=== PATIENT | male | born 1970 | race African-American/Black ===

== ENCOUNTER 2022-04-22 19:28 | Inpatient (IN) | payer SELFPAY ==
[2022-04-22] MEDS ORDERED: Ondansetron PF 4 MG/2 ML Vial ONE (19:58)
[2022-04-22 20:02] LABS: #Lymphocytes 1.8 thou/uL (1.20-3.40); #Monocytes 0.5 thou/uL (0.11-0.59); #Neutrophils 8.8 thou/uL (1.40-6.50); %Eosinophils 0.2 % (0.0-10.0); %Lymphocytes 16.1 % (21.0-51.0); %Monocytes 4.7 % (0.0-10.0); Hemoglobin 13.7 g/dL (14.0-18.0); Mean Corpuscular HGB CONC 32.6 g/dL (32.0-36.0); Mean Corpuscular Hemoglobin 24.9 pg (27.0-31.0); Mean Corpuscular Volume 76.6 fl (78.0-98.0); Mean Platelet Volume 8.9 fL (7.4-10.4); Platelet Count 200 10x3/uL (130-400); RBC Distribution Width 13.3 % (11.5-14.5); Red Blood Cell (RBC) Count 5.48 mill/uL (4.70-6.10); White Blood Cell (WBC) Count 11.2 10x3/uL (4.8-10.8)
[2022-04-22 20:31] LABS: ALT (SGPT) 13 U/L (8-55); AST (SGOT) 16 U/L (5-34); Albumin 4.3 g/dL (3.5-5.0); Alkaline Phosphatase 75 U/L (40-110); Anion Gap 17 mmol/L (10-20); BUN (Urea Nitrogen) 14 mg/dL (8.9-20.6); Bilirubin, Total 0.8 mg/dL (0.2-1.2); Calc. Creatinine Clearance 0 mL/min (70-130); Calcium 9.1 mg/dL (7.8-10.44); Carbon Dioxide 25 mmol/L (22-29); Chloride 103 mmol/L (98-107); Estimated GFR 69; Glucose 168 mg/dL (70-105); Lipase 39 U/L (8-78); Potassium 3.5 mmol/L (3.5-5.1); Sodium 141 mmol/L (136-145)
[2022-04-22] MEDS ORDERED: diphenhydrAMINE 50 MG/ML VIAL ONE (21:06)
[2022-04-22] MEDS ORDERED: Aspirin Chewable 81 MG TAB ONE (21:06)
[2022-04-22] MEDS ORDERED: Nitroglycerin 2% Ointment 1 INCH/1 GM Packet ONE (21:06)
[2022-04-22] MEDS ORDERED: Metoclopramide HCl 10 MG/2 ML VIAL ONE (21:06)
[2022-04-22 21:22] LABS: Globulin 3.3 g/dL (2.4-3.5); Protein, Total 7.6 g/dL (6.0-8.3)
[2022-04-22] MEDS ORDERED: hydrALAZINE 20 MG/ML VIAL ONE (21:57)
[2022-04-22 23:19] LABS: Troponin I Less than 0.010 ng/mL (< 0.028)
[2022-04-22] MEDS ORDERED: Sodium Chloride 0.9% 1,000 ML IV SCH (23:45)
[2022-04-23 00:11] VITALS: BMI 30.2
[2022-04-23] MEDS ORDERED: diphenhydrAMINE 50 MG/ML VIAL IVP PRN (00:23)
[2022-04-23] MEDS: Lactated Ringer's 1,000 ML IV SCH ×2 (01:05→08:57)
[2022-04-23] MEDS ORDERED: Dextrose 50% Abboject 50 ML SYRINGE SLOW IVP PRN (01:26)
[2022-04-23] MEDS ORDERED: Dextrose 5% in Water 1,000 ML IV PRN (01:26)
[2022-04-23] MEDS ORDERED: HumaLOG 300 UNITS/3 ML VIAL SC PRN (01:26)
[2022-04-23 01:49] LABS: Bacteria/HPF None Seen HPF (None Seen); Bilirubin Negative (Negative); Blood, Urine Trace (Negative); CAUTI Indications for Culture Alt mental st,lethar; Clarity Clear (Clear); Glucose, Urine (Dipstick) 300 mg/dL (Negative); Ketone, Urine 40 mg/dL (Negative); Leukocyte Negative Leu/uL (Negative); Nitrite Negative (Negative); Protein, Urine (Dipstick) Negative (Neg-Trace); Specific Gravity, Urine 1.014 (1.002-1.036); Squamous Epithelial None Seen HPF (0-3); Urobilinogen Normal mg/dL (Less than 2); WBC/HPF 0-3 HPF (0-3)
[2022-04-23 01:50] LABS: Urine Culture Reflex No No
[2022-04-23 02:41] LABS: #Lymphocytes 1.3 thou/uL (1.20-3.40); #Monocytes 0.5 thou/uL (0.11-0.59); #Neutrophils 8.4 thou/uL (1.40-6.50); %Basophils 0.1 % (0.0-1.0); %Eosinophils 0.1 % (0.0-10.0); %Lymphocytes 12.4 % (21.0-51.0); %Monocytes 4.4 % (0.0-10.0); Hemoglobin 12.7 g/dL (14.0-18.0); Mean Corpuscular HGB CONC 32.2 g/dL (32.0-36.0); Mean Corpuscular Hemoglobin 24.6 pg (27.0-31.0); Mean Corpuscular Volume 76.5 fl (78.0-98.0); Mean Platelet Volume 8.8 fL (7.4-10.4); Platelet Count 182 10x3/uL (130-400); RBC Distribution Width 13.1 % (11.5-14.5); Red Blood Cell (RBC) Count 5.18 mill/uL (4.70-6.10); White Blood Cell (WBC) Count 10.1 10x3/uL (4.8-10.8)
[2022-04-23 02:47] LABS: Hemoglobin A1c 10.7 % (4.0-6.0)
[2022-04-23 02:59] LABS: Cardiac Risk 3.5 (Less than 4.5)
[2022-04-23 03:02] LABS: Troponin I Less than 0.010 ng/mL (< 0.028)
[2022-04-23 03:09] LABS: ALT (SGPT) 11 U/L (8-55); AST (SGOT) 15 U/L (5-34); Albumin 3.8 g/dL (3.5-5.0); Alkaline Phosphatase 69 U/L (40-110); Anion Gap 15 mmol/L (10-20); BUN (Urea Nitrogen) 14 mg/dL (8.9-20.6); Bilirubin, Total 0.7 mg/dL (0.2-1.2); Calc. Creatinine Clearance 122 mL/min (70-130); Calcium 8.4 mg/dL (7.8-10.44); Carbon Dioxide 22 mmol/L (22-29); Chloride 106 mmol/L (98-107); Estimated GFR 101; Globulin 2.8 g/dL (2.4-3.5); Glucose 137 mg/dL (70-105); Potassium 3.5 mmol/L (3.5-5.1); Protein, Total 6.6 g/dL (6.0-8.3); Sodium 139 mmol/L (136-145)
[2022-04-23] MEDS: Metoclopramide HCl 10 MG/2 ML VIAL IVP SCH ×2 (05:36→13:21)
[2022-04-23] MEDS: Amlodipine 10 MG TAB PO SCH (08:48)
[2022-04-23] MEDS: Enoxaparin Sodium 40 MG/0.4 ML SYRINGE SC SCH (08:49)
[2022-04-23] MEDS ORDERED: Pantoprazole 40 MG VIAL IVP SCH (09:00)
[2022-04-23] MEDS ORDERED: diphenhydrAMINE 25 MG CAP PO PRN (17:24)
[2022-04-23] MEDS ORDERED: hydrALAZINE 20 MG/ML VIAL SLOW IVP PRN (19:15)
[2022-04-23] MEDS: Metoclopramide HCl 10 MG TAB PO SCH (21:03)
[2022-04-23] MEDS ORDERED: Acetaminophen 325 MG TAB PO SCH (21:15)
[2022-04-24 05:16] LABS: #Basophils 0.1 thou/uL (0.0-0.2); #Eosinphils 0.1 thou/uL (0.0-0.7); #Lymphocytes 3.2 thou/uL (1.20-3.40); #Monocytes 0.9 thou/uL (0.11-0.59); #Neutrophils 5.2 thou/uL (1.40-6.50); %Basophils 0.8 % (0.0-1.0); %Eosinophils 1.5 % (0.0-10.0); %Lymphocytes 33.7 % (21.0-51.0); %Monocytes 9.1 % (0.0-10.0); Hemoglobin 12.9 g/dL (14.0-18.0); Mean Corpuscular HGB CONC 32.2 g/dL (32.0-36.0); Mean Corpuscular Hemoglobin 24.8 pg (27.0-31.0); Mean Platelet Volume 8.7 fL (7.4-10.4); Platelet Count 184 10x3/uL (130-400); RBC Distribution Width 13.1 % (11.5-14.5); Red Blood Cell (RBC) Count 5.22 mill/uL (4.70-6.10); White Blood Cell (WBC) Count 9.5 10x3/uL (4.8-10.8)
[2022-04-24] MEDS: Metoclopramide HCl 10 MG TAB PO SCH ×3 (05:16→21:36)
[2022-04-24 05:40] LABS: ALT (SGPT) 11 U/L (8-55); AST (SGOT) 13 U/L (5-34); Albumin 3.5 g/dL (3.5-5.0); Alkaline Phosphatase 64 U/L (40-110); Anion Gap 11 mmol/L (10-20); BUN (Urea Nitrogen) 11 mg/dL (8.9-20.6); Calc. Creatinine Clearance 117 mL/min (70-130); Calcium 8.4 mg/dL (7.8-10.44); Carbon Dioxide 27 mmol/L (22-29); Chloride 104 mmol/L (98-107); Estimated GFR 97; Globulin 2.8 g/dL (2.4-3.5); Glucose 109 mg/dL (70-105); Potassium 3.3 mmol/L (3.5-5.1); Protein, Total 6.3 g/dL (6.0-8.3); Sodium 139 mmol/L (136-145)
[2022-04-24] MEDS ORDERED: Potassium Chloride 20 MEQ TAB PO SCH (06:30)
[2022-04-24] MEDS ORDERED: Senokot S 8.6-50 MG TAB PO PRN (06:34)
[2022-04-24] MEDS: Amlodipine 10 MG TAB PO SCH (08:33)
[2022-04-24] MEDS: metFORMIN 500 MG TAB PO SCH ×2 (08:33→17:17)
[2022-04-24] MEDS: Enoxaparin Sodium 40 MG/0.4 ML SYRINGE SC SCH (08:34)
[2022-04-24] MEDS ORDERED: Losartan 25 MG TAB PO SCH ×2 (09:00→15:00)
[2022-04-24] MEDS: Polyethylene Glycol 3350 17 GM Packet PO SCH (14:19)
[2022-04-24] MEDS ORDERED: hydrALAZINE 20 MG/ML VIAL SLOW IVP PRN (14:37)
[2022-04-24] MEDS ORDERED: hydrALAZINE 25 MG TAB PO SCH (17:00)
[2022-04-24] MEDS ORDERED: Hydrochlorothiazide 25 MG TAB PO SCH (18:15)
[2022-04-25] MEDS: Metoclopramide HCl 10 MG TAB PO SCH (06:33)
[2022-04-25 08:18] VITALS: BP 140/94; TEMP 98.2
[2022-04-25] MEDS ORDERED: Hydrochlorothiazide 25 MG TAB PO SCH (09:00)
[2022-04-25] MEDS ORDERED: Losartan 25 MG TAB PO SCH (09:00)
[2022-04-25] MEDS: Amlodipine 10 MG TAB PO SCH (09:09)
[2022-04-25] MEDS: Enoxaparin Sodium 40 MG/0.4 ML SYRINGE SC SCH ×2 (09:09→09:12)
[2022-04-25] MEDS: metFORMIN 500 MG TAB PO SCH (09:09)
[2022-04-25] MEDS: Polyethylene Glycol 3350 17 GM Packet PO SCH (09:10)
[2022-04-26] MEDS ORDERED: FLU VACC QS2022-23(6MOS UP)/PF 60 MCG/0.5 ML SYRINGE IM ONE (09:00)
== END 2022-04-25 13:44 | disposition home or self-care (01) | DRG 74 ==
LOC: ERS 19:28 → 2SW 22:06 → OBSVTOIN 04-23 17:27
PROVIDERS: ADMIT Student in an Organized Health Care Education/Training Program; ATTEND Student in an Organized Health Care Education/Training Program
DX: E11.43 Type 2 diabetes mellitus with diabetic autonomic (poly)neuropathy (principal); K31.84 Gastroparesis; Z20.822 Contact with and (suspected) exposure to COVID-19; E03.9 Hypothyroidism, unspecified; G47.33 Obstructive sleep apnea (adult) (pediatric); E86.0 Dehydration; E11.65 Type 2 diabetes mellitus with hyperglycemia; I10 Essential (primary) hypertension; Z99.89 Dependence on other enabling machines and devices
CPT/HCPCS: 36415; 36416; 71045; 80053; 80061; 81001; 83036; 83690; 84439; 84443; 84484; 85025; 93005; 96365; 96375; 96376; C9113; G0378; J0360; J1200; J1650; J1815; J2405; J2765; J7120; U0003; U0005

== ENCOUNTER 2022-04-29 00:12 | Emergency (ER) | payer SELFPAY ==
[2022-04-29] MEDS ORDERED: Ondansetron PF 4 MG/2 ML Vial ONE (00:45)
[2022-04-29 00:52] LABS: #Lymphocytes 1.9 thou/uL (1.20-3.40); #Monocytes 0.8 thou/uL (0.11-0.59); #Neutrophils 13.1 thou/uL (1.40-6.50); %Basophils 0.3 % (0.0-1.0); %Eosinophils 0.2 % (0.0-10.0); %Monocytes 5.1 % (0.0-10.0); %Neutrophils 82.3 % (42.0-75.0); Hemoglobin 14.3 g/dL (14.0-18.0); Mean Corpuscular HGB CONC 32.4 g/dL (32.0-36.0); Mean Corpuscular Hemoglobin 24.5 pg (27.0-31.0); Mean Corpuscular Volume 75.6 fl (78.0-98.0); Mean Platelet Volume 8.6 fL (7.4-10.4); Platelet Count 231 10x3/uL (130-400); RBC Distribution Width 13.3 % (11.5-14.5); Red Blood Cell (RBC) Count 5.84 mill/uL (4.70-6.10)
[2022-04-29 01:06] LABS: ALT (SGPT) 9 U/L (8-55); AST (SGOT) 14 U/L (5-34); Albumin 4.4 g/dL (3.5-5.0); Alkaline Phosphatase 78 U/L (40-110); Anion Gap 18 mmol/L (10-20); BUN (Urea Nitrogen) 12 mg/dL (8.9-20.6); Bilirubin, Total 0.7 mg/dL (0.2-1.2); Calc. Creatinine Clearance 0 mL/min (70-130); Calcium 9.3 mg/dL (7.8-10.44); Carbon Dioxide 25 mmol/L (22-29); Chloride 97 mmol/L (98-107); Estimated GFR 70; Globulin 3.1 g/dL (2.4-3.5); Glucose 282 mg/dL (70-105); Lipase 40 U/L (8-78); Potassium 3.3 mmol/L (3.5-5.1); Protein, Total 7.5 g/dL (6.0-8.3); Sodium 137 mmol/L (136-145)
[2022-04-29] MEDS ORDERED: Dicyclomine 20 MG/2 ML VIAL ONE (01:40)
[2022-04-29 02:17] LABS: Bilirubin Negative (Negative); Blood, Urine 1+ (Negative); Clarity Clear (Clear); Glucose, Urine (Dipstick) Greater than 1000 mg/dL (Negative); Ketone, Urine 20 mg/dL (Negative); Leukocyte Negative Leu/uL (Negative); Nitrite Negative (Negative); Protein, Urine (Dipstick) 20 mg/dL (Neg-Trace); Specific Gravity, Urine 1.012 (1.002-1.036); Urobilinogen Normal mg/dL (Less than 2); pH, Urine 6.5 (5.0-9.0)
[2022-04-29 02:18] LABS: RBC/HPF 0-3 HPF (0-3); Squamous Epithelial None Seen HPF (0-3); WBC/HPF None Seen HPF (0-3)
[2022-04-29] MEDS ORDERED: Haloperidol Lactate 5 MG/ML VIAL ONE (03:22)
== END 2022-04-29 04:38 | disposition home or self-care (01) ==
LOC: ERS 00:12
DX: R10.9 Unspecified abdominal pain (principal); R11.10 Vomiting, unspecified; I10 Essential (primary) hypertension; E11.9 Type 2 diabetes mellitus without complications
CPT/HCPCS: 36415; 71045; 74176; 80053; 81003; 81015; 83690; 84484; 85025; 93005; 96372; 96374; 96375; J1630; J2405

== ENCOUNTER 2022-06-18 12:56 | Emergency (ER) | payer SELFPAY ==
[~2022-06-18 12:56] MED LIST: Iopamidol-370 76% 500 ML 1 ML ONE
[2022-06-18] MEDS ORDERED: Morphine 4 MG/ML VIAL ONE (13:40)
[2022-06-18] MEDS ORDERED: Ketorolac Tromethamine 30 MG/ML VIAL ONE (13:48)
[2022-06-18] MEDS ORDERED: Promethazine HCl 25 MG in Sodium Chloride 0.9% 50 ML IVPB SCH (14:00)
[2022-06-18 14:01] LABS: #Lymphocytes 1.1 thou/uL (1.20-3.40); #Monocytes 0.4 thou/uL (0.11-0.59); #Neutrophils 9.2 thou/uL (1.40-6.50); %Basophils 0.3 % (0.0-1.0); %Eosinophils 0.1 % (0.0-10.0); %Lymphocytes 10.2 % (21.0-51.0); %Monocytes 3.8 % (0.0-10.0); %Neutrophils 85.6 % (42.0-75.0); Hemoglobin 11.9 g/dL (14.0-18.0); Mean Corpuscular HGB CONC 32.6 g/dL (32.0-36.0); Mean Corpuscular Hemoglobin 24.2 pg (27.0-31.0); Mean Corpuscular Volume 74.2 fl (78.0-98.0); Mean Platelet Volume 8.1 fL (7.4-10.4); Platelet Count 241 10x3/uL (130-400); RBC Distribution Width 13.3 % (11.5-14.5); Red Blood Cell (RBC) Count 4.91 mill/uL (4.70-6.10); White Blood Cell (WBC) Count 10.7 10x3/uL (4.8-10.8)
[2022-06-18 14:12] LABS: ALT (SGPT) 10 U/L (8-55); AST (SGOT) 12 U/L (5-34); Alkaline Phosphatase 52 U/L (40-110); Anion Gap 15 mmol/L (10-20); BUN (Urea Nitrogen) 15 mg/dL (8.9-20.6); Bilirubin, Total 0.7 mg/dL (0.2-1.2); Calc. Creatinine Clearance 0 mL/min (70-130); Calcium 8.9 mg/dL (7.8-10.44); Carbon Dioxide 24 mmol/L (22-29); Chloride 101 mmol/L (98-107); Estimated GFR 70; Globulin 2.5 g/dL (2.4-3.5); Glucose 226 mg/dL (70-105); Potassium 3.4 mmol/L (3.5-5.1); Protein, Total 6.5 g/dL (6.0-8.3); Sodium 137 mmol/L (136-145)
[2022-06-18 14:13] LABS: Acetaminophen Less than 10.0 mcg/mL (10.0-30.0); Alcohol Less than 10 mg/dL (Less than 10); Lipase 50 U/L (8-78); Salicylate Less than 8.0 mg/dL (15.0-30.0)
[2022-06-18 14:15] LABS: Hypochromia SLIGHT = 6-15 cells (100X) (0-5/hpf); MDiff Complete? YES; Microcytosis SLIGHT = 6-15 cells (100X) (0-5/hpf); Ovalocytes SLIGHT = 2-5 cells (100X) (0-1/hpf); Platelet Morphology Comment Appears Adequate; Polychromasia SLIGHT = 2-3 cells (100X) (0-2/hpf)
[2022-06-18] MEDS ORDERED: Mag-Al 1200 mg/1200 mg/30 ML UDCUP ONE (15:09)
[2022-06-18] MEDS ORDERED: Lidocaine Viscous Sol 2% 15 ml UD Cup ONE (15:09)
[2022-06-18] MEDS ORDERED: Famotidine/PF 20 mg/2ml Vial ONE (15:10)
[2022-06-18 15:12] LABS: Bacteria/HPF None Seen HPF (None Seen); Bilirubin Negative (Negative); Blood, Urine 2+ (Negative); Clarity Clear (Clear); Glucose, Urine (Dipstick) 500 mg/dL (Negative); Ketone, Urine 10 mg/dL (Negative); Leukocyte Negative Leu/uL (Negative); Nitrite Negative (Negative); Protein, Urine (Dipstick) Negative (Neg-Trace); RBC/HPF 21-50 HPF (0-3); Specific Gravity, Urine 1.022 (1.002-1.036); Squamous Epithelial 0-3 HPF (0-3); Urobilinogen Normal mg/dL (Less than 2); WBC/HPF 0-3 HPF (0-3); pH, Urine 6.5 (5.0-9.0)
[2022-06-18 16:49] LABS: Lactic Acid 2.2 mmol/L (0.5-2.2)
== END 2022-06-18 18:27 | disposition home or self-care (01) ==
LOC: ERS 12:56
DX: N20.0 Calculus of kidney (principal); E11.9 Type 2 diabetes mellitus without complications; I10 Essential (primary) hypertension; Z20.822 Contact with and (suspected) exposure to COVID-19
CPT/HCPCS: 36415; 74177; 80053; 80307; 81003; 81015; 83605; 83690; 84484; 85025; 93005; 96361; 96374; 96375; J1790; J1885; J2270; J2550; Q9967; S0028; U0003; U0005

== ENCOUNTER 2022-08-19 09:49 | Emergency (ER) | payer BC, SELFPAY ==
[~2022-08-19 09:49] MED LIST changes: +Iopamidol 370 76% 100 ML VIAL ONE; -Iopamidol-370 76% 500 ML 1 ML ONE
[2022-08-19 10:23] LABS: #Lymphocytes 1.5 thou/uL (1.20-3.40); #Monocytes 0.7 thou/uL (0.11-0.59); #Neutrophils 9.7 thou/uL (1.40-6.50); %Basophils 0.3 % (0.0-1.0); %Eosinophils 0.2 % (0.0-10.0); %Lymphocytes 12.9 % (21.0-51.0); %Monocytes 6.1 % (0.0-10.0); %Neutrophils 80.7 % (42.0-75.0); Hemoglobin 13.3 g/dL (14.0-18.0); Mean Corpuscular HGB CONC 30.9 g/dL (32.0-36.0); Mean Corpuscular Hemoglobin 24.1 pg (27.0-31.0); Mean Corpuscular Volume 77.9 fl (78.0-98.0); Mean Platelet Volume 8.2 fL (7.4-10.4); Platelet Count 299 10x3/uL (130-400); RBC Distribution Width 13.8 % (11.5-14.5); Red Blood Cell (RBC) Count 5.52 mill/uL (4.70-6.10)
[2022-08-19] MEDS ORDERED: Morphine 4 MG/ML VIAL ONE (10:55)
[2022-08-19] MEDS ORDERED: Ketorolac Tromethamine 30 MG/ML VIAL ONE (10:56)
[2022-08-19] MEDS ORDERED: Ondansetron PF 4 MG/2 ML Vial ONE (10:56)
[2022-08-19] MEDS ORDERED: Dicyclomine 20 MG/2 ML VIAL ONE (10:56)
[2022-08-19 11:44] LABS: ALT (SGPT) 14 U/L (8-55); AST (SGOT) 21 U/L (5-34); Albumin 4.2 g/dL (3.5-5.0); Alkaline Phosphatase 58 U/L (40-110); Anion Gap 15 mmol/L (10-20); BUN (Urea Nitrogen) 21 mg/dL (8.9-20.6); Bilirubin, Total 0.8 mg/dL (0.2-1.2); Calc. Creatinine Clearance 0 mL/min (70-130); Calcium 9.2 mg/dL (7.8-10.44); Carbon Dioxide 25 mmol/L (22-29); Chloride 103 mmol/L (98-107); Estimated GFR 67; Globulin 3.2 g/dL (2.4-3.5); Glucose 173 mg/dL (70-105); Lipase 26 U/L (8-78); Protein, Total 7.4 g/dL (6.0-8.3); Sodium 140 mmol/L (136-145)
[2022-08-19] MEDS ORDERED: Potassium Chloride 20 MEQ TAB ONE (13:03)
== END 2022-08-19 13:07 | disposition home or self-care (01) ==
LOC: ERS 09:49
DX: R10.84 Generalized abdominal pain (principal); I10 Essential (primary) hypertension; E87.6 Hypokalemia; D72.829 Elevated white blood cell count, unspecified; E11.9 Type 2 diabetes mellitus without complications; Z79.899 Other long term (current) drug therapy; Z79.84 Long term (current) use of oral hypoglycemic drugs
CPT/HCPCS: 36415; 71045; 71275; 72191; 74174; 80053; 83690; 84484; 85025; 93005; 94760; 96372; 96374; 96375; J1885; J2270; J2405; Q9967

== ENCOUNTER 2022-10-30 06:00 | Inpatient (IN) | payer BC ==
[2022-10-30] MEDS ORDERED: Morphine 4 MG/ML VIAL ONE (06:22)
[2022-10-30] MEDS ORDERED: Ondansetron PF 4 MG/2 ML Vial ONE (06:22)
[2022-10-30 06:40] LABS: #Monocytes 0.3 thou/uL (0.11-0.59); #Neutrophils 14.2 thou/uL (1.40-6.50); %Basophils 0.1 % (0.0-1.0); %Lymphocytes 5.4 % (21.0-51.0); %Monocytes 2.1 % (0.0-10.0); %Neutrophils 92.1 % (42.0-75.0); Hemoglobin 14.4 g/dL (14.0-18.0); Mean Corpuscular HGB CONC 31.9 g/dL (32.0-36.0); Mean Corpuscular Hemoglobin 23.9 pg (27.0-31.0); Mean Corpuscular Volume 74.9 fl (78.0-98.0); Mean Platelet Volume 10.1 fL (7.4-10.4); Platelet Count 300 10x3/uL (130-400); RBC Distribution Width 13.9 % (11.5-14.5); Red Blood Cell (RBC) Count 6.02 mill/uL (4.70-6.10); White Blood Cell (WBC) Count 15.4 10x3/uL (4.8-10.8)
[2022-10-30] MEDS ORDERED: hydrALAZINE 20 MG/ML VIAL ONE (06:42)
[2022-10-30 07:02] LABS: Anion Gap 19 mmol/L (10-20); BUN (Urea Nitrogen) 20 mg/dL (8.9-20.6); Calc. Creatinine Clearance 0 mL/min (70-130); Carbon Dioxide 24 mmol/L (22-29); Chloride 98 mmol/L (98-107); Potassium 3.5 mmol/L (3.5-5.1); Sodium 137 mmol/L (136-145)
[2022-10-30 07:03] LABS: ALT (SGPT) 22 U/L (8-55); AST (SGOT) 42 U/L (5-34); Albumin 4.8 g/dL (3.5-5.0); Alkaline Phosphatase 83 U/L (40-110); Bilirubin, Total 0.5 mg/dL (0.2-1.2); Calcium 9.8 mg/dL (7.8-10.44); Estimated GFR 63; Globulin 3.7 g/dL (2.4-3.5); Glucose 190 mg/dL (70-105); Lipase 29 U/L (8-78); Protein, Total 8.5 g/dL (6.0-8.3)
[2022-10-30] MEDS ORDERED: Nitroglycerin 2% Ointment 1 INCH/1 GM Packet ONE (07:29)
[2022-10-30] MEDS ORDERED: Aspirin Chewable 81 MG TAB ONE (07:29)
[2022-10-30] MEDS ORDERED: Famotidine/PF 20 mg/2ml Vial ONE (08:02)
[2022-10-30 08:38] LABS: CellaVision Operator ID LAB.GE; Hypersegmented Neutrophil SLIGHT (None Seen); Microcytosis SLIGHT = 6-15 cells HPF (0-5); Platelet Adequacy Comment Platelets Normal
[2022-10-30] MEDS ORDERED: Iopamidol-370 76% 500 ML MDV (1 ML CHARGE) ONE (08:54)
[2022-10-30] MEDS ORDERED: Glucagon 1 MG/ML KIT IM PRN (09:23)
[2022-10-30] MEDS ORDERED: Dextrose 50% Abboject 50 ML SYRINGE SLOW IVP PRN (09:23)
[2022-10-30] MEDS ORDERED: Acetaminophen 325 MG TAB PO PRN (09:23)
[2022-10-30] MEDS ORDERED: HumaLOG 300 UNITS/3 ML VIAL SC PRN ×2 (09:23)
[2022-10-30] MEDS ORDERED: Dextrose 5% in Water 1,000 ML IV PRN (09:23)
[2022-10-30] MEDS ORDERED: Metoclopramide HCl 10 MG/2 ML VIAL IVP PRN (09:26)
[2022-10-30] MEDS ORDERED: Morphine 4 MG/ML VIAL SLOW IVP PRN (09:26)
[2022-10-30] MEDS ORDERED: Amlodipine 10 MG TAB PO SCH ×2 (09:30→11:35)
[2022-10-30] MEDS ORDERED: niCARdipine 40MG In NaCl 40 MG/200 ML BAG IVPB SCH (09:45)
[2022-10-30 09:51] LABS: Troponin I Less than 0.010 ng/mL (< 0.028)
[2022-10-30] MEDS ORDERED: niCARdipine 25 MG in Sodium Chloride 0.9% 250 ML 250 ML IVPB SCH (10:00)
[2022-10-30] MEDS ORDERED: niCARdipine 25 MG/10 ML SDV ONE (10:42)
[2022-10-30] MEDS: Sodium Chloride 0.9% 1,000 ML IV SCH ×3 (12:17→20:47)
[2022-10-30] MEDS ORDERED: Electrolyte Replacement Protocol FS PRN (12:30)
[2022-10-30] MEDS ORDERED: Electrolyte Replacement Protocol 1 EACH FS SCH (12:30)
[2022-10-30] MEDS ORDERED: Potassium Chloride 20 MEQ TAB PO SCH (12:45)
[2022-10-30] MEDS: Nitroglycerin 2% Ointment 1 INCH/1 GM Packet TOP SCH ×2 (14:45→22:16)
[2022-10-30 18:21] LABS: Amphetamine Not Detected (NotDetected); Barbiturates Screen Not Detected (NotDetected); Benzodiazepine Screen Not Detected (NotDetected); Cocaine Metabolite Screen Not Detected (NotDetected); Methadone Not Detected (NotDetected); Methamphetamine Not Detected (NotDetected); Opiate Screen Detected (NotDetected); Oxycodone Screen Not Detected (NotDetected); Phencyclidine (PCP) Not Detected (NotDetected); THC/Cannabinoid Screen Not Detected (NotDetected); Tricyclic Screen Not Detected (NotDetected)
[2022-10-30] MEDS: Pantoprazole 40 MG VIAL IVP SCH (20:40)
[2022-10-30] MEDS: Atorvastatin Calcium 20 MG TAB PO SCH (20:40)
[2022-10-30] MEDS ORDERED: NIFEdipine XL 30 MG TAB PO SCH (21:00)
[2022-10-30] MEDS: hydrALAZINE 20 MG/ML VIAL SLOW IVP PRN (23:07)
[2022-10-30] MEDS ORDERED: Simethicone Chewable 80 MG TAB PO SCH (23:30)
[2022-10-30] MEDS ORDERED: Mag-Al 1200 mg/1200 mg/30 ML UDCUP PO PRN (23:30)
[2022-10-31 04:05] LABS: #Monocytes 0.9 thou/uL (0.11-0.59); #Neutrophils 9.6 thou/uL (1.40-6.50); %Basophils 0.2 % (0.0-1.0); %Eosinophils 0.1 % (0.0-10.0); %Lymphocytes 15.5 % (21.0-51.0); %Monocytes 6.9 % (0.0-10.0); Hemoglobin 13.2 g/dL (14.0-18.0); Mean Corpuscular HGB CONC 31.5 g/dL (32.0-36.0); Mean Corpuscular Hemoglobin 23.2 pg (27.0-31.0); Mean Corpuscular Volume 73.5 fl (78.0-98.0); Mean Platelet Volume 10.5 fL (7.4-10.4); Platelet Count 272 10x3/uL (130-400); RBC Distribution Width 14.1 % (11.5-14.5); White Blood Cell (WBC) Count 12.4 10x3/uL (4.8-10.8)
[2022-10-31 04:26] LABS: Anion Gap 13 mmol/L (10-20); BUN (Urea Nitrogen) 13 mg/dL (8.9-20.6); Calc. Creatinine Clearance 100 mL/min (70-130); Calcium 8.5 mg/dL (7.8-10.44); Carbon Dioxide 23 mmol/L (22-29); Chloride 106 mmol/L (98-107); Estimated GFR 84; Glucose 139 mg/dL (70-105); Potassium 3.7 mmol/L (3.5-5.1); Sodium 138 mmol/L (136-145)
[2022-10-31] MEDS: Sodium Chloride 0.9% 1,000 ML IV SCH ×2 (05:14→21:29)
[2022-10-31] MEDS: Nitroglycerin 2% Ointment 1 INCH/1 GM Packet TOP SCH ×3 (06:09→21:19)
[2022-10-31] MEDS: Pantoprazole 40 MG VIAL IVP SCH ×2 (08:49→21:16)
[2022-10-31] MEDS: NIFEdipine XL 60 MG TAB PO SCH ×2 (08:50→21:15)
[2022-10-31] MEDS ORDERED: Amlodipine 10 MG TAB PO SCH ×2 (09:00)
[2022-10-31] MEDS: Losartan 25 MG TAB PO SCH (11:35)
[2022-10-31] MEDS: hydrALAZINE 20 MG/ML VIAL SLOW IVP PRN (15:03)
[2022-10-31] MEDS: Atorvastatin Calcium 20 MG TAB PO SCH (21:15)
[2022-11-01] MEDS: Sodium Chloride 0.9% 1,000 ML IV SCH ×2 (03:04→14:32)
[2022-11-01 04:45] VITALS: BMI 29.7
[2022-11-01] MEDS: Nitroglycerin 2% Ointment 1 INCH/1 GM Packet TOP SCH (06:13)
[2022-11-01 06:41] LABS: #Eosinphils 0.1 thou/uL (0.0-0.7); #Neutrophils 6.3 thou/uL (1.40-6.50); %Basophils 0.4 % (0.0-1.0); %Eosinophils 1.1 % (0.0-10.0); %Lymphocytes 28.5 % (21.0-51.0); %Monocytes 9.2 % (0.0-10.0); %Neutrophils 60.6 % (42.0-75.0); Hemoglobin 13.9 g/dL (14.0-18.0); Mean Corpuscular HGB CONC 31.6 g/dL (32.0-36.0); Mean Corpuscular Hemoglobin 23.5 pg (27.0-31.0); Mean Platelet Volume 9.8 fL (7.4-10.4); Platelet Count 253 10x3/uL (130-400); RBC Distribution Width 14.2 % (11.5-14.5); Red Blood Cell (RBC) Count 5.92 mill/uL (4.70-6.10); White Blood Cell (WBC) Count 10.4 10x3/uL (4.8-10.8)
[2022-11-01 06:54] LABS: Mean Corpuscular Volume 74.3 fl (78.0-98.0)
[2022-11-01 07:19] LABS: ALT (SGPT) 14 U/L (8-55); AST (SGOT) 19 U/L (5-34); Albumin 3.7 g/dL (3.5-5.0); Alkaline Phosphatase 66 U/L (40-110); Anion Gap 12 mmol/L (10-20); BUN (Urea Nitrogen) 14 mg/dL (8.9-20.6); Bilirubin, Total 0.6 mg/dL (0.2-1.2); Calc. Creatinine Clearance 109 mL/min (70-130); Calcium 8.7 mg/dL (7.8-10.44); Carbon Dioxide 21 mmol/L (22-29); Chloride 109 mmol/L (98-107); Estimated GFR 92; Globulin 2.8 g/dL (2.4-3.5); Glucose 106 mg/dL (70-105); Magnesium 2.1 mg/dL (1.6-2.6); Potassium 3.7 mmol/L (3.5-5.1); Protein, Total 6.5 g/dL (6.0-8.3); Sodium 138 mmol/L (136-145)
[2022-11-01 08:25] VITALS: TEMP 98
[2022-11-01] MEDS ORDERED: Amlodipine 10 MG TAB PO SCH (09:00)
[2022-11-01] MEDS: NIFEdipine XL 60 MG TAB PO SCH (10:58)
[2022-11-01] MEDS: Pantoprazole 40 MG VIAL IVP SCH (10:59)
[2022-11-01] MEDS: Losartan 25 MG TAB PO SCH (10:59)
[2022-11-01 16:03] VITALS: BP 162/96
[2022-11-01 21:12] LABS: Lead-Whole Blood Less than 1.0 ug/dL (0.0-3.4)
[2022-11-05 03:13] LABS: Arsenic - Blood Less than 1 ug/L (0-9); Lead - Blood <1.0 ug/dL (0.0-3.4); Mercury - Blood <1.0 ug/L (0.0-14.9)
[2022-11-28 08:14] LABS: Arsenic/Creatinine Ratio 11 ug/g creat (.); Creatinine - Urine 1.19 g/L (0.30-3.00); Lead - Urine None Detected ug/L (0-49); Mercury - Urine None Detected ug/L (0-19)
== END 2022-11-01 18:31 | disposition home or self-care (01) | DRG 305 ==
LOC: ERS 06:00 → SUATTDRO 06:00 → CCU 08:17 → T4-B 10-31 20:02
PROVIDERS: ADMIT Internal Medicine; ATTEND Internal Medicine
DX: I16.1 Hypertensive emergency (principal); N17.9 Acute kidney failure, unspecified; K21.9 Gastro-esophageal reflux disease without esophagitis; G47.33 Obstructive sleep apnea (adult) (pediatric); I10 Essential (primary) hypertension; E11.43 Type 2 diabetes mellitus with diabetic autonomic (poly)neuropathy; K31.84 Gastroparesis; R94.31 Abnormal electrocardiogram [ECG] [EKG]; E11.65 Type 2 diabetes mellitus with hyperglycemia; Z79.899 Other long term (current) drug therapy; Z99.89 Dependence on other enabling machines and devices; Z98.890 Other specified postprocedural states; Z82.49 Family history of ischemic heart disease and other diseases of the circulatory system; Z79.84 Long term (current) use of oral hypoglycemic drugs
CPT/HCPCS: 36415; 36416; 71045; 74177; 78264; 80048; 80053; 80306; 82175; 82570; 83036; 83655; 83690; 83735; 83825; 84484; 85025; 93005; 93306; 96361; 96365; 96375; A9541; C9113; J0360; J1815; J2270; J2405; J2765; J7050; Q9967; S0028

== ENCOUNTER 2022-11-25 08:20 | Emergency (ER) | payer BC ==
[2022-11-25 08:42] LABS: #Monocytes 0.4 thou/uL (0.11-0.59); #Neutrophils 11.2 thou/uL (1.40-6.50); %Basophils 0.1 % (0.0-1.0); %Lymphocytes 7.6 % (21.0-51.0); %Monocytes 3.3 % (0.0-10.0); %Neutrophils 88.8 % (42.0-75.0); Hemoglobin 14.4 g/dL (14.0-18.0); Mean Corpuscular HGB CONC 32.2 g/dL (32.0-36.0); Mean Corpuscular Hemoglobin 23.6 pg (27.0-31.0); Mean Corpuscular Volume 73.2 fl (78.0-98.0); Mean Platelet Volume 9.4 fL (7.4-10.4); Platelet Count 264 10x3/uL (130-400); RBC Distribution Width 13.6 % (11.5-14.5); Red Blood Cell (RBC) Count 6.11 mill/uL (4.70-6.10); White Blood Cell (WBC) Count 12.6 10x3/uL (4.8-10.8)
[2022-11-25] MEDS ORDERED: Prochlorperazine 10 MG/2 ML VIAL ONE (09:06)
[2022-11-25] MEDS ORDERED: Dicyclomine 20 MG/2 ML VIAL ONE (09:06)
[2022-11-25] MEDS ORDERED: Famotidine/PF 20 mg/2ml Vial ONE (09:06)
[2022-11-25 09:09] LABS: ALT (SGPT) 16 U/L (8-55); AST (SGOT) 18 U/L (5-34); Albumin 4.7 g/dL (3.5-5.0); Alkaline Phosphatase 71 U/L (40-110); Anion Gap 19 mmol/L (10-20); BUN (Urea Nitrogen) 21 mg/dL (8.9-20.6); Bilirubin, Total 0.5 mg/dL (0.2-1.2); Calc. Creatinine Clearance 0 mL/min (70-130); Calcium 10.2 mg/dL (7.8-10.44); Carbon Dioxide 25 mmol/L (22-29); Chloride 102 mmol/L (98-107); Estimated GFR 54; Globulin 3.3 g/dL (2.4-3.5); Glucose 174 mg/dL (70-105); Lipase 54 U/L (8-78); Potassium 3.5 mmol/L (3.5-5.1); Sodium 142 mmol/L (136-145)
[2022-11-25] MEDS ORDERED: Losartan 25 MG TAB PO SCH (10:45)
[2022-11-25 12:46] LABS: Lactic Acid 1.4 mmol/L (0.5-2.2)
== END 2022-11-25 13:18 | disposition home or self-care (01) ==
LOC: ERS 08:20
DX: R10.13 Epigastric pain (principal); E11.9 Type 2 diabetes mellitus without complications; I10 Essential (primary) hypertension; Z79.899 Other long term (current) drug therapy
CPT/HCPCS: 36415; 71045; 76705; 80053; 83605; 83690; 84484; 85025; 85379; 93005; 94760; 96361; 96372; 96374; 96375; J0780; S0028

== ENCOUNTER 2022-12-17 16:13 | Emergency (ER) | payer BC ==
[~2022-12-17 16:13] MED LIST changes: -Iopamidol 370 76% 100 ML VIAL ONE; +Iopamidol-370 76% 500 ML MDV (1 ML CHARGE) ONE
[2022-12-17] MEDS ORDERED: Ondansetron PF 4 MG/2 ML Vial ONE (17:06)
[2022-12-17] MEDS ORDERED: Ketorolac Tromethamine 30 MG/ML VIAL ONE (17:06)
[2022-12-17 17:10] LABS: #Monocytes 0.8 thou/uL (0.11-0.59); #Neutrophils 7.8 thou/uL (1.40-6.50); %Basophils 0.2 % (0.0-1.0); %Lymphocytes 21.5 % (21.0-51.0); %Monocytes 6.9 % (0.0-10.0); %Neutrophils 71.2 % (42.0-75.0); Mean Corpuscular HGB CONC 32.3 g/dL (32.0-36.0); Mean Corpuscular Hemoglobin 23.5 pg (27.0-31.0); Mean Corpuscular Volume 72.8 fl (78.0-98.0); Mean Platelet Volume 9.8 fL (7.4-10.4); Platelet Count 306 10x3/uL (130-400); RBC Distribution Width 14.8 % (11.5-14.5); Red Blood Cell (RBC) Count 6.39 mill/uL (4.70-6.10); White Blood Cell (WBC) Count 10.9 10x3/uL (4.8-10.8)
[2022-12-17 17:31] LABS: CellaVision Operator ID LAB.MJL; Hypochromia SLIGHT = 6-15 cells HPF (0-5); Microcytosis SLIGHT = 6-15 cells HPF (0-5); Platelet Adequacy Comment Platelets Normal; Polychromasia SLIGHT = 2-3 cells HPF (0-2)
[2022-12-17 17:39] LABS: Albumin 4.7 g/dL (3.5-5.0)
[2022-12-17 17:40] LABS: Chloride 101 mmol/L (98-107); Potassium 3.4 mmol/L (3.5-5.1); Sodium 136 mmol/L (136-145)
[2022-12-17 17:41] LABS: Calcium 9.7 mg/dL (7.8-10.44)
[2022-12-17 17:42] LABS: Globulin 3.5 g/dL (2.4-3.5); Glucose 118 mg/dL (70-105); Protein, Total 8.2 g/dL (6.0-8.3)
[2022-12-17 17:43] LABS: Anion Gap 12 mmol/L (10-20); Carbon Dioxide 26 mmol/L (22-29)
[2022-12-17 17:44] LABS: Bilirubin, Total 0.8 mg/dL (0.2-1.2)
[2022-12-17 17:45] LABS: Alkaline Phosphatase 75 U/L (40-110); Calc. Creatinine Clearance 0 mL/min (70-130); Estimated GFR 54
[2022-12-17 17:47] LABS: AST (SGOT) 24 U/L (5-34)
[2022-12-17 17:48] LABS: ALT (SGPT) 20 U/L (8-55); Lipase 54 U/L (8-78)
[2022-12-17 18:00] LABS: BUN (Urea Nitrogen) 28 mg/dL (8.9-20.6)
[2022-12-17] MEDS ORDERED: Potassium Chloride 20 MEQ TAB ONE (18:33)
== END 2022-12-17 18:52 | disposition home or self-care (01) ==
LOC: ERS 16:13
DX: R10.31 Right lower quadrant pain (principal); R11.2 Nausea with vomiting, unspecified; I10 Essential (primary) hypertension
CPT/HCPCS: 74177; 80053; 83690; 85025; 96361; 96374; 96375; J1885; J2405; Q9967

== ENCOUNTER 2023-07-03 08:38 | Emergency (ER) | payer BC ==
[2023-07-03] MEDS ORDERED: Morphine 4 MG/ML VIAL ONE (09:01)
[2023-07-03] MEDS ORDERED: Ondansetron PF 4 MG/2 ML Vial ONE (09:02)
[2023-07-03 09:06] LABS: #Monocytes 0.8 thou/uL (0.11-0.59); #Neutrophils 14.6 thou/uL (1.40-6.50); %Basophils 0.1 % (0.0-1.0); %Lymphocytes 6.2 % (21.0-51.0); %Monocytes 5.1 % (0.0-10.0); %Neutrophils 88.2 % (42.0-75.0); Hematocrit 42.8 % (42.0-52.0); Hemoglobin 13.8 g/dL (14.0-18.0); Mean Corpuscular HGB CONC 32.2 g/dL (32.0-36.0); Mean Corpuscular Volume 74.3 fl (78.0-98.0); Mean Platelet Volume 10.1 fL (7.4-10.4); Platelet Count 279 10x3/uL (130-400); RBC Distribution Width 14.6 % (11.5-14.5); Red Blood Cell (RBC) Count 5.76 mill/uL (4.70-6.10); White Blood Cell (WBC) Count 16.6 10x3/uL (4.8-10.8)
[2023-07-03 09:29] LABS: CellaVision Operator ID LAB.KW3; Hypochromia SLIGHT = 6-15 cells HPF (0-5); Platelet Adequacy Comment Platelets Normal; Polychromasia SLIGHT = 2-3 cells HPF (0-2)
[2023-07-03 09:35] LABS: Troponin I 0.012 ng/mL (< 0.028)
[2023-07-03 09:36] LABS: ALT (SGPT) 20 U/L (8-55); AST (SGOT) 26 U/L (5-34); Albumin 4.8 g/dL (3.5-5.0); Alkaline Phosphatase 69 U/L (40-110); Anion Gap 15 mmol/L (10-20); BUN (Urea Nitrogen) 21 mg/dL (8.9-20.6); Bilirubin, Total 1.1 mg/dL (0.2-1.2); Calc. Creatinine Clearance 0 mL/min (70-130); Calcium 9.9 mg/dL (7.8-10.44); Carbon Dioxide 31 mmol/L (22-29); Chloride 97 mmol/L (98-107); Estimated GFR 54; Globulin 3.4 g/dL (2.4-3.5); Glucose 201 mg/dL (70-105); Lipase 26 U/L (8-78); Potassium 3.2 mmol/L (3.5-5.1); Protein, Total 8.2 g/dL (6.0-8.3); Sodium 140 mmol/L (136-145)
[2023-07-03] MEDS ORDERED: Potassium Chloride 20 MEQ TAB ONE (10:03)
[2023-07-03] MEDS ORDERED: Haloperidol Lactate 5 MG/ML VIAL ONE (10:26)
[2023-07-03] MEDS ORDERED: Lidocaine 2% Viscous 10 mL, Alum & Magn 30 mL SSW SCH (11:15)
[2023-07-03] MEDS ORDERED: Iopamidol-370 76% 500 ML MDV (1 ML CHARGE) ONE (11:17)
[2023-07-03] MEDS ORDERED: Losartan 25 MG TAB ONE (12:12)
[2023-07-03 12:21] LABS: Lactic Acid 2.2 mmol/L (0.5-2.2)
== END 2023-07-03 14:50 | disposition home or self-care (01) ==
LOC: ERS 08:38
DX: E86.0 Dehydration (principal); E87.6 Hypokalemia; R11.2 Nausea with vomiting, unspecified; R10.13 Epigastric pain; R10.11 Right upper quadrant pain; R10.816 Epigastric abdominal tenderness; R10.811 Right upper quadrant abdominal tenderness; I10 Essential (primary) hypertension; Z79.899 Other long term (current) drug therapy
CPT/HCPCS: 36415; 36416; 74177; 80053; 83605; 83690; 84484; 85025; 93005; 94760; 96374; 96375; J1630; J2270; J2405; Q9967

== ENCOUNTER 2023-08-15 13:24 | Emergency (ER) | payer BC ==
[2023-08-15 14:09] LABS: #Basophils Less than 0.03 10x3/uL (0.0-0.2); #Eosinphils Less than 0.03 10x3/uL (0.0-0.7); %Basophils 0.2 % (0.0-1.0); %Lymphocytes 13.9 % (21.0-51.0); %Monocytes 6.6 % (0.0-10.0); %Neutrophils 78.9 % (42.0-75.0); Hematocrit 41.3 % (42.0-52.0); Hemoglobin 13.1 g/dL (14.0-18.0); Mean Corpuscular HGB CONC 31.7 g/dL (32.0-36.0); Mean Corpuscular Hemoglobin 23.4 pg (27.0-31.0); Mean Corpuscular Volume 73.9 fl (78.0-98.0); Mean Platelet Volume 10.5 fL (7.4-10.4); Platelet Count 326 10x3/uL (130-400); RBC Distribution Width 14.5 % (11.5-14.5); Red Blood Cell (RBC) Count 5.59 mill/uL (4.70-6.10)
[2023-08-15 14:22] LABS: ALT (SGPT) 37 U/L (8-55); AST (SGOT) 29 U/L (5-34); Albumin 4.2 g/dL (3.5-5.0); Alkaline Phosphatase 54 U/L (40-110); Anion Gap 15 mmol/L (10-20); BUN (Urea Nitrogen) 12 mg/dL (8.9-20.6); Bilirubin, Total 1.3 mg/dL (0.2-1.2); Calc. Creatinine Clearance 0 mL/min (70-130); Calcium 9.7 mg/dL (7.8-10.44); Carbon Dioxide 26 mmol/L (22-29); Chloride 101 mmol/L (98-107); Estimated GFR 66; Globulin 2.9 g/dL (2.4-3.5); Glucose 133 mg/dL (70-105); Lipase 68 U/L (8-78); Potassium 3.1 mmol/L (3.5-5.1); Protein, Total 7.1 g/dL (6.0-8.3); Sodium 139 mmol/L (136-145)
[2023-08-15 14:35] LABS: Anisocytosis SLIGHT = 6-15 cells HPF (0-5); Microcytosis SLIGHT = 6-15 cells HPF (0-5); Ovalocytes SLIGHT = 2-5 cells HPF (0-1); Platelet Adequacy Comment Platelets Normal; Poikilocytosis SLIGHT = 6-15 cells HPF (0-5); Schistocytes SLIGHT = 2-5 cells HPF (0-1)
[2023-08-15] MEDS ORDERED: Haloperidol Lactate 5 MG/ML VIAL ONE (15:19)
== END 2023-08-15 17:09 | disposition home or self-care (01) ==
LOC: ERS 13:24
DX: K29.70 Gastritis, unspecified, without bleeding (principal); E11.9 Type 2 diabetes mellitus without complications; I10 Essential (primary) hypertension
CPT/HCPCS: 36415; 80053; 83690; 85025; 96361; 96374; J1630

== ENCOUNTER 2023-08-19 10:40 | Inpatient (IN) | payer BC ==
[2023-08-19] MEDS ORDERED: Ondansetron PF 4 MG/2 ML Vial ONE (10:55)
[2023-08-19] MEDS ORDERED: Morphine 4 MG/ML VIAL ONE (10:55)
[2023-08-19 11:15] LABS: #Basophils Less than 0.03 10x3/uL (0.0-0.2); #Eosinphils Less than 0.03 10x3/uL (0.0-0.7); %Basophils 0.2 % (0.0-1.0); %Eosinophils 0.1 % (0.0-10.0); %Lymphocytes 11.9 % (21.0-51.0); %Monocytes 5.7 % (0.0-10.0); %Neutrophils 81.8 % (42.0-75.0); Hemoglobin 13.7 g/dL (14.0-18.0); Mean Corpuscular HGB CONC 31.9 g/dL (32.0-36.0); Mean Corpuscular Hemoglobin 23.9 pg (27.0-31.0); Platelet Count 335 10x3/uL (130-400); RBC Distribution Width 14.7 % (11.5-14.5); Red Blood Cell (RBC) Count 5.73 mill/uL (4.70-6.10)
[2023-08-19 11:36] LABS: ALT (SGPT) 28 U/L (8-55); AST (SGOT) 20 U/L (5-34); Albumin 4.5 g/dL (3.5-5.0); Alkaline Phosphatase 53 U/L (40-110); Anion Gap 19 mmol/L (10-20); BUN (Urea Nitrogen) 11 mg/dL (8.9-20.6); Bilirubin, Total 1.4 mg/dL (0.2-1.2); Calc. Creatinine Clearance 0 mL/min (70-130); Calcium 10.1 mg/dL (7.8-10.44); Carbon Dioxide 26 mmol/L (22-29); Chloride 99 mmol/L (98-107); Estimated GFR 61; Globulin 3.2 g/dL (2.4-3.5); Glucose 146 mg/dL (70-105); Lipase 76 U/L (8-78); Potassium 3.3 mmol/L (3.5-5.1); Protein, Total 7.7 g/dL (6.0-8.3); Sodium 141 mmol/L (136-145)
[2023-08-19] MEDS ORDERED: Labetalol HCl 100 MG/20 ML VIAL ONE (12:04)
[2023-08-19] MEDS ORDERED: Mag-Al 1200 mg/1200 mg/30 ML UDCUP PO PRN (12:22)
[2023-08-19] MEDS ORDERED: Dextrose 5% in Water 1,000 ML IV PRN (12:23)
[2023-08-19] MEDS ORDERED: Glucagon 1 MG/ML KIT IM PRN (12:23)
[2023-08-19] MEDS ORDERED: Dextrose 50% Abboject 50 ML SYRINGE SLOW IVP PRN (12:23)
[2023-08-19] MEDS ORDERED: HumaLOG 300 UNITS/3 ML VIAL SC PRN (12:23)
[2023-08-19] MEDS ORDERED: Acetaminophen 650 MG Suppository PR PRN (12:39)
[2023-08-19] MEDS: Pantoprazole 40 MG VIAL IVP SCH ×2 (13:38→20:49)
[2023-08-19] MEDS: Sodium Chloride 0.9% 1,000 ML IV SCH (13:38)
[2023-08-19] MEDS: Metoclopramide HCl 10 MG (2 mL) VIAL IVP SCH (14:38)
[2023-08-19] MEDS: Potassium Chloride 20 MEQ in Premix 1 BAG IVPB SCH (15:18)
[2023-08-19] MEDS: Atorvastatin Calcium 20 MG TAB PO SCH (20:49)
[2023-08-19] MEDS: NIFEdipine XL 60 MG ER.TAB PO SCH (20:50)
[2023-08-20] MEDS: Morphine 4 MG/ML VIAL SLOW IVP PRN (01:38)
[2023-08-20] MEDS: Morphine 2 MG/ML VIAL SLOW IVP SCH (02:04)
[2023-08-20 04:02] VITALS: BMI 26.6
[2023-08-20 05:25] LABS: #Basophils Less than 0.03 10x3/uL (0.0-0.2); %Basophils 0.3 % (0.0-1.0); %Eosinophils 0.4 % (0.0-10.0); %Lymphocytes 17.6 % (21.0-51.0); %Monocytes 7.2 % (0.0-10.0); %Neutrophils 74.2 % (42.0-75.0); Hematocrit 34.9 % (42.0-52.0); Hemoglobin 11.2 g/dL (14.0-18.0); Mean Corpuscular HGB CONC 32.1 g/dL (32.0-36.0); Mean Corpuscular Hemoglobin 23.9 pg (27.0-31.0); Mean Corpuscular Volume 74.6 fL (78.0-98.0); Mean Platelet Volume 11.2 fL (7.4-10.4); Platelet Count 252 10x3/uL (130-400); RBC Distribution Width 14.9 % (11.5-14.5); Red Blood Cell (RBC) Count 4.68 mill/uL (4.70-6.10)
[2023-08-20 05:27] LABS: Hemoglobin A1c 6.7 % (4.0-6.0)
[2023-08-20 05:42] LABS: CRP (Inflammatory) Less than 0.50 mg/dL (= or < 0.5); Phosphorus 3.2 mg/dL (2.3-4.7)
[2023-08-20 05:46] LABS: ALT (SGPT) 20 U/L (8-55); AST (SGOT) 11 U/L (5-34); Albumin 3.5 g/dL (3.5-5.0); Alkaline Phosphatase 41 U/L (40-110); Anion Gap 8 mmol/L (10-20); BUN (Urea Nitrogen) 9 mg/dL (8.9-20.6); Calc. Creatinine Clearance 100 mL/min (70-130); Calcium 8.6 mg/dL (7.8-10.44); Carbon Dioxide 28 mmol/L (22-29); Cardiac Risk 3.7 (Less than 4.5); Chloride 104 mmol/L (98-107); Cholesterol 141 mg/dl (< 200 Desired); Estimated GFR 93; Globulin 2.3 g/dL (2.4-3.5); Glucose 113 mg/dL (70-105); HDL Cholesterol 38 mg/dL (>60 Neg Risk); LDL Cholesterol, Calculated 92 mg/dL; Lipase 54 U/L (8-78); Magnesium 1.7 mg/dL (1.6-2.6); Potassium 3.4 mmol/L (3.5-5.1); Protein, Total 5.8 g/dL (6.0-8.3); Sodium 137 mmol/L (136-145); Triglycerides 57 mg/dL (Less than 150)
[2023-08-20 06:06] LABS: Hypochromia SLIGHT = 6-15 cells HPF (0-5); Microcytosis SLIGHT = 6-15 cells HPF (0-5); Platelet Adequacy Comment Platelets Normal
[2023-08-20] MEDS: Enoxaparin 40 MG (0.4 mL) SYRINGE SC SCH (07:56)
[2023-08-20] MEDS: Losartan 25 MG TAB PO SCH (07:59)
[2023-08-20] MEDS ORDERED: Iopamidol-370 76% 500 ML MDV (1 ML CHARGE) ONE (10:11)
[2023-08-20 15:30] LABS: Amphetamine Not Detected (NotDetected); Barbiturates Screen Not Detected (NotDetected); Benzodiazepine Screen Not Detected (NotDetected); Cocaine Metabolite Screen Not Detected (NotDetected); Methadone Not Detected (NotDetected); Methamphetamine Not Detected (NotDetected); Opiate Screen Detected (NotDetected); Oxycodone Screen Not Detected (NotDetected); Phencyclidine (PCP) Not Detected (NotDetected); THC/Cannabinoid Screen Not Detected (NotDetected); Tricyclic Screen Not Detected (NotDetected)
[2023-08-20] MEDS: Acetaminophen 325 MG TAB PO PRN (21:27)
[2023-08-21 05:35] LABS: Iron 58 ug/dL (65-175); Iron Binding Capacity, Total 185 mcg/dL (261-462)
[2023-08-21] MEDS: HYDROcodone/Acetaminophen 5/325 mg Tablet PO PRN (15:00)
[2023-08-21] MEDS: Ondansetron PF 4 MG/2 ML Vial IVP PRN (16:09)
[2023-08-21] MEDS: Naloxegol 12.5 MG TAB PO SCH (17:17)
[2023-08-21] MEDS: Senokot S 8.6-50 MG TAB PO PRN (18:24)
[2023-08-21] MEDS: Bisacodyl 10 MG SUPP PR SCH (20:55)
[2023-08-22] MEDS ORDERED: Naloxegol 12.5 MG TAB PO SCH (07:30)
[2023-08-22] MEDS: Polyethylene Glycol 3350 17 GM Packet PO SCH (09:04)
[2023-08-22] MEDS: Mineral Oil ENEMA PR SCH (15:22)
[2023-08-22] MEDS: HumaLOG 300 UNITS/3 ML VIAL SC PRN (18:15)
[2023-08-23] MEDS: HYDROcodone/Acetaminophen 5/325 mg Tablet PO PRN (09:55)
[2023-08-23] MEDS ORDERED: Morphine 2 MG/ML VIAL SLOW IVP ONE (11:11)
[2023-08-23] MEDS: Morphine 2 MG/ML VIAL SLOW IVP SCH (11:49)
[2023-08-23] MEDS: Mineral Oil ENEMA PR SCH ×2 (11:50→17:13)
[2023-08-23] MEDS ORDERED: Naloxegol 12.5 MG TAB PO SCH (17:00)
[2023-08-23] MEDS: Naloxegol 12.5 MG TAB PO SCH (17:16)
[2023-08-24 08:35] LABS: Anion Gap 14 mmol/L (10-20); BUN (Urea Nitrogen) 10 mg/dL (8.9-20.6); Calc. Creatinine Clearance 87 mL/min (70-130); Carbon Dioxide 24 mmol/L (22-29); Chloride 102 mmol/L (98-107); Estimated GFR 81; Glucose 75 mg/dL (70-105); Potassium 3.5 mmol/L (3.5-5.1); Sodium 136 mmol/L (136-145)
[2023-08-24] MEDS: Ketorolac Tromethamine 30 MG (1 mL) VIAL IVP SCH (10:54)
[2023-08-25 06:27] LABS: HIV (1/2) Antibody/Antigen Non-Reactive (NonReactive); HIV 1/2 INDEX 0.09 S/CO (<1.00); Thyroid Stimulating Hormone 0.7594 uIU/mL (0.35-4.94)
[2023-08-25 11:02] LABS: Syphilis Antibody Nonreactive (Nonreactive); Syphilis Antibody Index 0.04 S/CO (<1.00 Non-Reactive)
[2023-08-25 16:24] VITALS: BP 106/71; TEMP 98.3
[2023-08-25 16:50] LABS: Free T4 (Free Thyroxine) 1.39 ng/dL (0.70-1.48)
[2023-08-25 16:51] LABS: Hep C IgG Ab NonReactive S/CO (NonReactive); Hep C Index 0.09 S/CO (0-0.79)
[2023-08-26 13:48] LABS: EliA Celiac New Method **** NEW METHOD ****; t-Transglutaminase (tTG) IgA 0.5 EliAU/mL (<7 Negative); t-Transglutaminase (tTG) IgG 0.6 EliAU/mL (<7 Negative)
== END 2023-08-25 17:30 | disposition home or self-care (01) | DRG 74 ==
LOC: SUATTDRO 10:40 → ERS 10:40 → T4-A 12:21 → OBSVTOIN 08-21 14:46
PROVIDERS: ADMIT Internal Medicine; ATTEND Internal Medicine
DX: E11.43 Type 2 diabetes mellitus with diabetic autonomic (poly)neuropathy (principal); K59.00 Constipation, unspecified; K31.84 Gastroparesis; E78.5 Hyperlipidemia, unspecified; N18.9 Chronic kidney disease, unspecified; I12.9 Hypertensive chronic kidney disease with stage 1 through stage 4 chronic kidney disease, or unspecified chronic kidney disease; Z79.899 Other long term (current) drug therapy; G47.33 Obstructive sleep apnea (adult) (pediatric); K21.9 Gastro-esophageal reflux disease without esophagitis; F32.A Depression, unspecified; Z79.84 Long term (current) use of oral hypoglycemic drugs; Z79.4 Long term (current) use of insulin; D64.9 Anemia, unspecified
CPT/HCPCS: 36415; 36416; 74174; 80048; 80053; 80061; 80306; 82175; 82533; 82728; 83036; 83516; 83540; 83550; 83655; 83690; 83735; 83825; 84100; 84439; 84443; 85025; 86140; 86780; 86803; 87389; 96361; 96372; 96374; 96375; 96376; C9113; G0378; J1650; J1815; J1885; J2270; J2272; J2405; J2765; J3480; J7050; Q9967

== ENCOUNTER 2023-11-03 12:50 | Outpatient (CLI) | payer BC | END 2023-11-03 12:51 | disposition home or self-care (01) | LOC: ULT 12:50 | PROVIDERS: ATTEND Nurse Practitioner | DX: K59.00 Constipation, unspecified (principal); K21.9 Gastro-esophageal reflux disease without esophagitis; K31.84 Gastroparesis; R11.2 Nausea with vomiting, unspecified; N23 Unspecified renal colic; Z86.010 Personal history of colon polyps | CPT/HCPCS: 76700; 76770 ==

== ENCOUNTER 2024-06-15 17:20 | Emergency (ER) | payer OTHER, SELFPAY ==
[2024-06-15] MEDS ORDERED: Morphine 2 MG/ML VIAL ONE ×2 (17:27→18:10)
[2024-06-15] MEDS ORDERED: diphenhydrAMINE 50 MG/ML VIAL ONE (17:32)
[2024-06-15] MEDS ORDERED: Metoclopramide HCl 10 MG (2 mL) VIAL ONE (17:33)
[2024-06-15] MEDS ORDERED: Pantoprazole 40 MG VIAL ONE (17:33)
[2024-06-15 18:03] LABS: #Basophils Less than 0.03 10x3/uL (0.0-0.2); #Eosinophils Less than 0.03 10x3/uL (0.0-0.7); %Basophils 0.1 % (0.0-1.0); %Lymphocytes 4.5 % (21.0-51.0); %Monocytes 1.8 % (0.0-10.0); %Neutrophils 93.4 % (42.0-75.0); Hematocrit 33.5 % (42.0-52.0); Hemoglobin 10.5 g/dL (14.0-18.0); Mean Corpuscular HGB CONC 31.3 g/dL (32.0-36.0); Mean Corpuscular Hemoglobin 24.2 pg (27.0-31.0); Mean Corpuscular Volume 77.2 fL (78.0-98.0); Mean Platelet Volume 9.1 fL (7.4-10.4); Platelet Count 221 10x3/uL (130-400); RBC Distribution Width 14.3 % (11.5-14.5); Red Blood Cell (RBC) Count 4.34 mill/uL (4.70-6.10)
[2024-06-15 18:25] LABS: ALT (SGPT) 13 U/L (Less than 45); AST (SGOT) 21 U/L (11-34); Albumin 3.9 g/dL (3.1-4.5); Alkaline Phosphatase 45 U/L (40-110); Anion Gap 18 mmol/L (10-20); BUN (Urea Nitrogen) 12 mg/dL (8.4-25.7); Bilirubin, Total 0.8 mg/dL (0.3-1.2); Calc. Creatinine Clearance 0 mL/min (70-130); Calcium 8.7 mg/dL (7.8-10.44); Carbon Dioxide 24 mmol/L (22-29); Chloride 108 mmol/L (98-107); Estimated GFR 86; Globulin 2.7 g/dL (2.4-3.5); Glucose 174 mg/dL (70-105); Lipase 20 U/L (8-78); Protein, Total 6.6 g/dL (6.0-8.3); Sodium 146 mmol/L (136-145)
[2024-06-15] MEDS ORDERED: Dicyclomine 20 MG/2 ML VIAL ONE (19:08)
[2024-06-15] MEDS ORDERED: Ketorolac Tromethamine 30 MG (1 mL) VIAL ONE (19:08)
[2024-06-15 19:48] LABS: Bacteria/HPF None Seen HPF (None Seen); Bilirubin Negative (Negative); Blood, Urine 2+ (Negative); CAUTI Indications for Culture Pelvic or flank pain; Clarity Clear (Clear); Glucose, Urine (Dipstick) 70 mg/dL (Negative); Ketone, Urine Trace mg/dL (Negative); Leukocyte Negative Leu/uL (Negative); Nitrite Negative (Negative); Protein, Urine (Dipstick) Negative (Neg-Trace); RBC/HPF 21-50 HPF (0-3); Squamous Epithelial None Seen HPF (0-3); Urobilinogen Normal mg/dL (Less than 2); WBC/HPF 0-3 HPF (0-3); pH, Urine 7.5 (5.0-9.0)
[2024-06-15 19:51] LABS: Urine Culture Reflex No No
== END 2024-06-15 21:13 | disposition home or self-care (01) ==
LOC: ERS 17:20
DX: E11.43 Type 2 diabetes mellitus with diabetic autonomic (poly)neuropathy (principal); K31.84 Gastroparesis; I10 Essential (primary) hypertension
CPT/HCPCS: 36415; 74177; 80053; 81001; 83690; 85025; 96372; 96374; 96375; 96376; J1200; J1885; J2272; J2470; J2765; Q9967

== ENCOUNTER 2024-12-30 18:39 | Observation (INO) | payer OTHER ==
[2024-12-30] MEDS ORDERED: Ondansetron PF 4 MG/2 ML Vial ONE (19:04)
[2024-12-30 22:03] LABS: #Basophils Less than 0.03 10x3/uL (0.0-0.2); #Eosinophils Less than 0.03 10x3/uL (0.0-0.7); #Monocytes 0.48 10x3/uL (0.11-0.59); #Neutrophils 5.57 10x3/uL (1.40-6.50); %Basophils 0.1 % (0.0-1.0); %Eosinophils 0.3 % (0.0-10.0); %Lymphocytes 21.7 % (21.0-51.0); %Monocytes 6.2 % (0.0-10.0); %Neutrophils 71.4 % (42.0-75.0); Hematocrit 35.2 % (42.0-52.0); Hemoglobin 11.5 g/dL (14.0-18.0); Mean Corpuscular Hemoglobin 24.4 pg (27.0-31.0); Mean Corpuscular Volume 74.7 fL (78.0-98.0); Platelet Count 165 10x3/uL (130-400); Red Blood Cell (RBC) Count 4.71 mill/uL (4.70-6.10); White Blood Cell (WBC) Count 7.79 10x3/uL (4.8-10.8)
[2024-12-30 22:12] LABS: ALT (SGPT) 13 U/L (Less than 45); AST (SGOT) 24 U/L (11-34); Albumin 3.7 g/dL (3.1-4.5); Alkaline Phosphatase 52 U/L (40-110); Anion Gap 17 mmol/L (10-20); BUN (Urea Nitrogen) 26 mg/dL (8.4-25.7); Bilirubin, Total 0.5 mg/dL (0.3-1.2); Calc. Creatinine Clearance 0 mL/min (70-130); Calcium 8.6 mg/dL (7.8-10.44); Carbon Dioxide 24 mmol/L (22-29); Chloride 100 mmol/L (98-107); Globulin 3.0 g/dL (2.4-3.5); Glucose 94 mg/dL (70-105); Lipase 46 U/L (8-78); Potassium 4.8 mmol/L (3.5-5.1); Sodium 136 mmol/L (136-145)
[2024-12-30 22:27] LABS: Microcytosis SLIGHT = 6-15 cells HPF (0-5); Platelet Adequacy Comment Platelets Normal; Schistocytes SLIGHT = 2-5 cells HPF (0-1)
[2024-12-31 00:22] LABS: Anion Gap 13 mmol/L (10-20); BUN (Urea Nitrogen) 31 mg/dL (8.4-25.7); Calc. Creatinine Clearance 0 mL/min (70-130); Calcium 8.4 mg/dL (7.8-10.44); Carbon Dioxide 27 mmol/L (22-29); Chloride 102 mmol/L (98-107); Glucose 91 mg/dL (70-105); Potassium 4.8 mmol/L (3.5-5.1); Sodium 137 mmol/L (136-145)
[2024-12-31] MEDS ORDERED: Acetaminophen 325 MG TAB PO PRN (03:56)
[2024-12-31] MEDS ORDERED: Calcium Carbonate 500 MG ChewTAB PO PRN (03:56)
[2024-12-31 04:41] VITALS: BMI 21.1
[2024-12-31] MEDS: hydrALAZINE 20 MG/ML VIAL SLOW IVP PRN (04:51)
[2024-12-31] MEDS: NIFEdipine XL 60 MG ER.TAB PO SCH (10:00)
[2024-12-31] MEDS: Pantoprazole 40 MG DR.TAB PO SCH (10:00)
[2024-12-31] MEDS: Cholecalciferol 1,000 UNITS (25 MCG) TAB PO SCH (10:00)
[2024-12-31 13:19] LABS: Magnesium 2.1 mg/dL (1.6-2.6)
[2024-12-31] MEDS: Ondansetron PF 4 MG/2 ML Vial IVP PRN (13:20)
[2024-12-31 23:51] VITALS: BP 103/72; TEMP 97.3
[2025-01-01 05:37] LABS: ALT (SGPT) 17 U/L (Less than 45); AST (SGOT) 25 U/L (11-34); Albumin 3.5 g/dL (3.1-4.5); Alkaline Phosphatase 52 U/L (40-110); Anion Gap 15 mmol/L (10-20); BUN (Urea Nitrogen) 20 mg/dL (8.4-25.7); Bilirubin, Total 0.5 mg/dL (0.3-1.2); Calc. Creatinine Clearance 64 mL/min (70-130); Calcium 8.8 mg/dL (7.8-10.44); Carbon Dioxide 25 mmol/L (22-29); Chloride 104 mmol/L (98-107); Globulin 3.0 g/dL (2.4-3.5); Glucose 84 mg/dL (70-105); Potassium 4.6 mmol/L (3.5-5.1); Sodium 139 mmol/L (136-145)
[2025-01-01 05:39] LABS: #Basophils Less than 0.03 10x3/uL (0.0-0.2); #Eosinophils 0.09 10x3/uL (0.0-0.7); #Monocytes 0.41 10x3/uL (0.11-0.59); #Neutrophils 4.76 10x3/uL (1.40-6.50); %Basophils 0.3 % (0.0-1.0); %Eosinophils 1.3 % (0.0-10.0); %Lymphocytes 24.2 % (21.0-51.0); %Monocytes 5.8 % (0.0-10.0); %Neutrophils 67.4 % (42.0-75.0); Hematocrit 36.5 % (42.0-52.0); Hemoglobin 11.6 g/dL (14.0-18.0); Mean Corpuscular Hemoglobin 23.7 pg (27.0-31.0); Mean Corpuscular Volume 74.6 fL (78.0-98.0); Platelet Count 173 10x3/uL (130-400); Red Blood Cell (RBC) Count 4.89 mill/uL (4.70-6.10); White Blood Cell (WBC) Count 7.06 10x3/uL (4.8-10.8)
[2025-01-01] MEDS: Ferrous Sulfate 325 MG TAB PO SCH (07:54)
[2025-01-01 08:51] VITALS: BMI 21.1
[2025-01-01] MEDS ORDERED: FERROUS SULFATE 325 MG PO SCH (09:00)
== END 2025-01-01 12:09 | disposition home or self-care (01) ==
LOC: ERS 18:39 → T4-B 12-31 03:36
PROVIDERS: ADMIT Student in an Organized Health Care Education/Training Program; ATTEND Internal Medicine
DX: N17.9 Acute kidney failure, unspecified (principal); K59.00 Constipation, unspecified; N20.0 Calculus of kidney; D64.9 Anemia, unspecified; K21.9 Gastro-esophageal reflux disease without esophagitis; E11.9 Type 2 diabetes mellitus without complications; I10 Essential (primary) hypertension; E78.5 Hyperlipidemia, unspecified; Z98.890 Other specified postprocedural states; Z79.899 Other long term (current) drug therapy
CPT/HCPCS: 36415; 36416; 74177; 80053; 83605; 83690; 83735; 85025; 93005; 96361; 96374; 96375; 96376; G0378; J0360; J2405; J3010; J7120; Q9967

== ENCOUNTER 2025-01-08 20:55 | Emergency (ER) | payer OTHER ==
[2025-01-08] MEDS ORDERED: diphenhydrAMINE 50 MG/ML VIAL ONE (21:32)
[2025-01-08] MEDS ORDERED: Metoclopramide HCl 10 MG (2 mL) VIAL ONE (21:33)
[2025-01-08 22:59] LABS: #Basophils Less than 0.03 10x3/uL (0.0-0.2); #Eosinophils Less than 0.03 10x3/uL (0.0-0.7); #Monocytes 0.25 10x3/uL (0.11-0.59); #Neutrophils 8.04 10x3/uL (1.40-6.50); %Basophils 0.2 % (0.0-1.0); %Eosinophils 0.1 % (0.0-10.0); %Lymphocytes 7.4 % (21.0-51.0); %Monocytes 2.8 % (0.0-10.0); %Neutrophils 89.3 % (42.0-75.0); Hematocrit 32.5 % (42.0-52.0); Hemoglobin 10.2 g/dL (14.0-18.0); Mean Corpuscular Hemoglobin 23.8 pg (27.0-31.0); Mean Corpuscular Volume 75.8 fL (78.0-98.0); Platelet Count 201 10x3/uL (130-400); Red Blood Cell (RBC) Count 4.29 mill/uL (4.70-6.10); White Blood Cell (WBC) Count 9.01 10x3/uL (4.8-10.8)
[2025-01-08 23:17] LABS: ALT (SGPT) 22 U/L (Less than 45); AST (SGOT) 22 U/L (11-34); Albumin 3.5 g/dL (3.1-4.5); Alkaline Phosphatase 58 U/L (40-110); Anion Gap 18 mmol/L (10-20); BUN (Urea Nitrogen) 19 mg/dL (8.4-25.7); Bilirubin, Total 0.5 mg/dL (0.3-1.2); Calc. Creatinine Clearance 0 mL/min (70-130); Calcium 8.2 mg/dL (7.8-10.44); Carbon Dioxide 23 mmol/L (22-29); Chloride 106 mmol/L (98-107); Globulin 2.9 g/dL (2.4-3.5); Glucose 176 mg/dL (70-105); Lipase 42 U/L (8-78); Potassium 3.7 mmol/L (3.5-5.1); Sodium 143 mmol/L (136-145)
[2025-01-09] MEDS ORDERED: diphenhydrAMINE 50 MG/ML VIAL ONE (00:45)
== END 2025-01-09 01:53 | disposition home or self-care (01) ==
LOC: ERS 20:55
DX: K31.84 Gastroparesis (principal); E11.9 Type 2 diabetes mellitus without complications; I10 Essential (primary) hypertension
CPT/HCPCS: 36415; 80053; 83690; 85025; 96374; 96375; 96376; J1200; J1630; J2270; J2765

== ENCOUNTER 2025-01-10 19:38 | Emergency (ER) | payer OTHER ==
[2025-01-10] MEDS ORDERED: Ketorolac Tromethamine 30 MG (1 mL) VIAL ONE (20:31)
[2025-01-10] MEDS ORDERED: Metoclopramide HCl 10 MG (2 mL) VIAL ONE (20:31)
[2025-01-10 20:48] LABS: #Basophils Less than 0.03 10x3/uL (0.0-0.2); #Eosinophils Less than 0.03 10x3/uL (0.0-0.7); #Monocytes 0.27 10x3/uL (0.11-0.59); #Neutrophils 10.14 10x3/uL (1.40-6.50); %Basophils 0.1 % (0.0-1.0); %Eosinophils 0.0 % (0.0-10.0); %Lymphocytes 7.4 % (21.0-51.0); %Monocytes 2.4 % (0.0-10.0); %Neutrophils 89.8 % (42.0-75.0); Hematocrit 34.1 % (42.0-52.0); Hemoglobin 10.7 g/dL (14.0-18.0); Mean Corpuscular Hemoglobin 23.7 pg (27.0-31.0); Mean Corpuscular Volume 75.4 fL (78.0-98.0); Platelet Count 259 10x3/uL (130-400); Red Blood Cell (RBC) Count 4.52 mill/uL (4.70-6.10); White Blood Cell (WBC) Count 11.28 10x3/uL (4.8-10.8)
[2025-01-10 21:09] LABS: Lipase 26 U/L (8-78); Magnesium 1.8 mg/dL (1.6-2.6)
[2025-01-10 21:10] LABS: Acetaminophen Less than 10 mcg/mL (Less than 10); Salicylate Less than 8.0 mg/dL (Less than 8.0)
[2025-01-10 21:11] LABS: ALT (SGPT) 12 U/L (Less than 45); AST (SGOT) 23 U/L (11-34); Albumin 4.0 g/dL (3.1-4.5); Alkaline Phosphatase 69 U/L (40-110); Anion Gap 16 mmol/L (10-20); BUN (Urea Nitrogen) 20 mg/dL (8.4-25.7); Bilirubin, Total 0.6 mg/dL (0.3-1.2); Calc. Creatinine Clearance 0 mL/min (70-130); Calcium 9.4 mg/dL (7.8-10.44); Carbon Dioxide 27 mmol/L (22-29); Chloride 98 mmol/L (98-107); Globulin 3.3 g/dL (2.4-3.5); Glucose 215 mg/dL (70-105); Potassium 3.6 mmol/L (3.5-5.1); Sodium 137 mmol/L (136-145)
[2025-01-10] MEDS ORDERED: diphenhydrAMINE 50 MG/ML VIAL ONE (22:47)
== END 2025-01-10 23:05 | disposition home or self-care (01) ==
LOC: ERS 19:38
DX: K31.84 Gastroparesis (principal); I10 Essential (primary) hypertension; E11.9 Type 2 diabetes mellitus without complications
CPT/HCPCS: 36415; 80053; 80307; 83605; 83690; 83735; 85025; 93005; 96361; 96372; 96374; 96375; 96376; J1200; J1630; J1885; J2270; J2765

== ENCOUNTER 2025-02-03 03:54 | Emergency (ER) | payer OTHER ==
[2025-02-03 04:23] LABS: #Basophils 0.03 10x3/uL (0.0-0.2); #Eosinophils Less than 0.03 10x3/uL (0.0-0.7); %Basophils 0.3 % (0.0-1.0); %Eosinophils 0.2 % (0.0-10.0)
[2025-02-03] MEDS ORDERED: diphenhydrAMINE 50 MG/ML VIAL ONE (04:35)
[2025-02-03] MEDS ORDERED: Metoclopramide HCl 10 MG (2 mL) VIAL ONE (04:35)
[2025-02-03 04:38] LABS: ALT (SGPT) 16 U/L (Less than 45); AST (SGOT) 29 U/L (11-34); Albumin 4.0 g/dL (3.1-4.5); Alkaline Phosphatase 66 U/L (40-110); Anion Gap 16 mmol/L (10-20); BUN (Urea Nitrogen) 13 mg/dL (8.4-25.7); Bilirubin, Total 0.6 mg/dL (0.3-1.2); CK (CPK) 242 U/L (30-200); Calc. Creatinine Clearance 0 mL/min (70-130); Calcium 9.7 mg/dL (7.8-10.44); Carbon Dioxide 26 mmol/L (22-29); Chloride 103 mmol/L (98-107); Globulin 3.1 g/dL (2.4-3.5); Glucose 164 mg/dL (70-105); Lipase 31 U/L (8-78); Potassium 4.0 mmol/L (3.5-5.1); Sodium 141 mmol/L (136-145)
[2025-02-03 04:59] LABS: #Monocytes 0.61 10x3/uL (0.11-0.59); #Neutrophils 7.80 10x3/uL (1.40-6.50); %Lymphocytes 16.3 % (21.0-51.0); %Monocytes 6.0 % (0.0-10.0); %Neutrophils 76.9 % (42.0-75.0); Hematocrit 34.7 % (42.0-52.0); Hemoglobin 10.8 g/dL (14.0-18.0); Mean Corpuscular Hemoglobin 23.8 pg (27.0-31.0); Mean Corpuscular Volume 76.4 fL (78.0-98.0); Platelet Count 243 10x3/uL (130-400); Red Blood Cell (RBC) Count 4.54 mill/uL (4.70-6.10); White Blood Cell (WBC) Count 10.14 10x3/uL (4.8-10.8)
[2025-02-03 06:10] LABS: Acetaminophen Less than 10 mcg/mL (Less than 10); Salicylate Less than 8.0 mg/dL (Less than 8.0)
[2025-02-03 07:06] LABS: Cocaine Metabolite Screen Negative (Negative); THC/Cannabinoid Screen Negative (Negative); Tricyclic Screen Negative (Negative)
[2025-02-03 07:38] LABS: Bacteria/HPF None Seen HPF (None Seen); CAUTI Indications for Culture Dysuria,urgency,freq; Glucose, Urine (Dipstick) 50 mg/dL (Negative); Leukocyte Negative Leu/uL (Negative); Protein, Urine (Dipstick) Negative (Neg-Trace); RBC/HPF Greater than 50 HPF (0-3); Specific Gravity, Urine 1.022 (1.002-1.036); WBC/HPF 0-3 HPF (0-3)
[2025-02-03 08:02] LABS: Urine Culture Reflex No No
== END 2025-02-03 09:27 | disposition home or self-care (01) ==
LOC: ERS 03:54
DX: K31.84 Gastroparesis (principal); K59.00 Constipation, unspecified; E11.9 Type 2 diabetes mellitus without complications; I10 Essential (primary) hypertension
CPT/HCPCS: 74177; 80053; 80306; 80307; 81001; 82550; 83605; 83690; 84484; 85025; 93005; 96361; 96372; 96374; 96375; 96376; J1200; J1630; J2270; J2765

== ENCOUNTER 2025-02-24 18:05 | Emergency (ER) | payer OTHER ==
[2025-02-24] MEDS ORDERED: diphenhydrAMINE 50 MG/ML VIAL ONE (18:18)
[2025-02-24] MEDS ORDERED: Ondansetron PF 4 MG/2 ML Vial ONE (18:19)
[2025-02-24 18:32] LABS: #Basophils Less than 0.03 10x3/uL (0.0-0.2); #Eosinophils Less than 0.03 10x3/uL (0.0-0.7); #Monocytes 0.30 10x3/uL (0.11-0.59); #Neutrophils 8.77 10x3/uL (1.40-6.50); %Basophils 0.2 % (0.0-1.0); %Eosinophils 0.0 % (0.0-10.0); %Lymphocytes 4.5 % (21.0-51.0); %Monocytes 3.1 % (0.0-10.0); %Neutrophils 92.0 % (42.0-75.0); Hematocrit 33.9 % (42.0-52.0); Hemoglobin 10.4 g/dL (14.0-18.0); Mean Corpuscular Hemoglobin 23.9 pg (27.0-31.0); Mean Corpuscular Volume 77.8 fL (78.0-98.0); Platelet Count 236 10x3/uL (130-400); Red Blood Cell (RBC) Count 4.36 mill/uL (4.70-6.10); White Blood Cell (WBC) Count 9.54 10x3/uL (4.8-10.8)
[2025-02-24 18:46] LABS: ALT (SGPT) 29 U/L (Less than 45); AST (SGOT) 28 U/L (11-34); Albumin 4.1 g/dL (3.1-4.5); Alkaline Phosphatase 52 U/L (40-110); Anion Gap 20 mmol/L (10-20); BUN (Urea Nitrogen) 15 mg/dL (8.4-25.7); Bilirubin, Total 0.7 mg/dL (0.3-1.2); Calc. Creatinine Clearance 0 mL/min (70-130); Calcium 9.5 mg/dL (7.8-10.44); Carbon Dioxide 25 mmol/L (22-29); Chloride 102 mmol/L (98-107); Globulin 3.0 g/dL (2.4-3.5); Glucose 193 mg/dL (70-105); Lipase 20 U/L (8-78); Potassium 3.9 mmol/L (3.5-5.1); Sodium 143 mmol/L (136-145)
[2025-02-24] MEDS ORDERED: hydrALAZINE 20 MG/ML VIAL ONE (20:37)
== END 2025-02-24 20:48 | disposition home or self-care (01) ==
LOC: ERS 18:05
DX: E11.43 Type 2 diabetes mellitus with diabetic autonomic (poly)neuropathy (principal); K31.84 Gastroparesis; I10 Essential (primary) hypertension
CPT/HCPCS: 36415; 80053; 83690; 85025; 96374; 96375; J0360; J1200; J1630